=== PATIENT | female | born 1990 | race Caucasian/White ===

== ENCOUNTER 2020-09-05 12:21 | Emergency (ER) | payer SELFPAY ==
--- OUTSIDE RECORDS SUMMARY | 2020-09-05 12:23 | XMS REPORT | Continuity of Care Document ---
:1990 Author Organization [facility] t Address [address] [place] [address] Care Team Providers Name Role Phone Unavailable Unavailable Unavailable Payers Payer Name Policy Type Policy Number Effective Date Expiration Date S ource Problems This patient has no known problems. Allergies, Adverse Reactions, Alerts Allergy Allergy Status Severity Reaction(s) Onset Inactive Treating Comm ents Source Name Type Date Date Clinician No Known DA Active U 2018-05 [facility] d 00 [facility] Medications This patient has no known medications. Procedures This patient has no known procedures. Results Test Description Test Time Test Comments Results Result Comments Source COMPREHENSIVE METABOLIC PANEL 2019-04-27 11:51:00 Test Item Value Reference Range Interpretation Comme nts SODIUM (test code = NA) 140 mmol/l 134.0-147.0 N POTASSIUM (test code = K) 3.6 mmol/L 3.6-5.2 N CHLORIDE (test code = CL) 104 mmol/l 98.0-107.0 N CARBON DIOXIDE (test code = CO2) 29.6 mmol/l 21.0-33.0 N ANION GAP (test code = GAP) 10.0 0-20 N GLUCOSE (test code = GLU) 91 mg/dl 70.0-110.0 N BLOOD UREA NITROGEN (test code = BUN) 13 mg/dl 7.0-18.0 N CREATININE (test code = CREAT) 0.51 mg/dL 0.60-1.30 L GFR NON BLACK (test code = GFRNONBLACK) 151 mL/min 110-120 H GFR BLACK (test code = GFRBLACK) 183 mL/min 133-145 H TOTAL PROTEIN (test code = PROT) 6.7 gm/dL 6.4-8.2 N ALBUMIN (test code = ALB) 3.8 gm/dl 3.2-4.7 N CALCIUM (test code = CA) 8.3 mg/dl 8.0-10.5 N BILIRUBIN TOTAL (test code = BILT) 0.3 mg/dl 0.0-1.0 N SGOT/AST (test code = AST) 19 Units/L 15.0-37.0 N SGPT/ALT (test code = ALT) 17 Units/L 12.0-78.0 N ALKALINE PHOSPHATASE TOTAL (test code = ALKP) 50 Units/L 50.0-136 .0 N COMPREHENSIVE METABOLIC [id number] 11:38:00 Test Item Value Reference Range Interpretation Comments SODIUM (test code = NA) 140 mmol/l 134.0-147.0 N POTASSIUM (test code = K) 3.6 mmol/L 3.6-5.2 N CHLORIDE (test code = CL) 104 mmol/l 98.0-107.0 N CARBON DIOXIDE (test code = CO2) 29.6 mmol/l 21.0-33.0 N ANION GAP (test code = GAP) 10.0 0-20 N GLUCOSE (test code = GLU) mg/dl 70.0-110.0 BLOOD UREA NITROGEN (test code = mg/dl 7.0-18.0 BUN) CREATININE (test code = CREAT) mg/dL 0.60-1.30 GFR NON BLACK (test code = mL/min 110-120 GFRNONBLACK) GFR BLACK (test code = GFRBLACK) mL/min 133-145 TOTAL PROTEIN (test code = PROT) gm/dL 6.4-8.2 ALBUMIN (test code = ALB) gm/dl 3.2-4.7 CALCIUM (test code = CA) mg/dl 8.0-10.5 BILIRUBIN TOTAL (test code = mg/dl 0.0-1.0 BILT) SGOT/AST (test code = AST) Units/L 15.0-37.0 SGPT/ALT (test code = ALT) Units/L 12.0-78.0 ALKALINE PHOSPHATASE TOTAL (test Units/L 50.0-136.0 code = ALKP) URINALYSIS [id number] 11:18:00 Test Item Value Reference Range Interpretation Comments UA COLOR (test code = YELLOW COLU) UA APPEARANCE (test code CLEAR = APPU) UA GLUCOSE DIPSTICK (test NORMAL mg/dl NORMAL code = DGLUU) UA BILIRUBIN DIPSTICK NEGATIVE mg/dL NEGATIVE (test code = BILU) UA KETONE DIPSTICK (test NEGATIVE mg/dl NEGATIVE code = KETU) UA SPECIFIC GRAVITY (test 1.010 1.000-1.030 code = SGU) UA BLOOD DIPSTICK (test NEGATIVE Jesse/micL NEGATIVE code = VELASQUEZ) UA PH DIPSTICK (test code 7.0 5.0-9.0 = BRENDA) UA PROTEIN DIPSTICK (test NEGATIVE mg/dl NEGATIVE code = PROU) UA UROBILINIOGEN DIPSTICK NORMAL mg/dl NORMAL (test code = URO) UA NITRITE DIPSTICK (test NEGATIVE NEGATIVE code = JASPER) UA LEUKOCYTE ESTERASE 100 Dagoberto/micL NEGATIVE A DIPSTICK (test code = Dagoberto/micL LEUU) UA WBC (test code = WBCU) 4-9 WBC/HPF NONE A UA RBC (test code = RBCU) 0-2 RBC/HPF 0-3 UA EPITHELIAL CELLS (test 1-3 EPI/HPF 0-3 code = EPIU) UA BACTERIA (test code = FEW NONE BACU) UR HCG [id number] 11:18:00 Test Item Value Reference Range Interpretation Comments UR HCG QUAL (test code = HCGQLU) NEGATIVE NEGATIVE URINALYSIS [id number] 11:04:00 Test Item Value Reference Range Interpretation Comments UA COLOR (test code = COLU) UA APPEARANCE (test code = APPU) UA GLUCOSE DIPSTICK (test NORMAL mg/dl NORMAL code = DGLUU) UA BILIRUBIN DIPSTICK NEGATIVE mg/dL NEGATIVE (test code = BILU) UA KETONE DIPSTICK (test NEGATIVE mg/dl NEGATIVE code = KETU) UA SPECIFIC GRAVITY (test 1.010 1.000-1.030 code = SGU) UA BLOOD DIPSTICK (test NEGATIVE Jesse/micL NEGATIVE code = VELASQUEZ) UA PH DIPSTICK (test code 7.0 5.0-9.0 = BRENDA) UA PROTEIN DIPSTICK (test NEGATIVE mg/dl NEGATIVE code = PROU) UA UROBILINIOGEN DIPSTICK NORMAL mg/dl NORMAL (test code = URO) UA NITRITE DIPSTICK (test NEGATIVE NEGATIVE code = JASPER) UA LEUKOCYTE ESTERASE 100 Dagoberto/micL NEGATIVE A DIPSTICK (test code = Dagoberto/micL LEUU) UA WBC (test code = WBCU) WBC/HPF NONE UA RBC (test code = RBCU) RBC/HPF 0-3 UA EPITHELIAL CELLS (test EPI/HPF 0-3 code = EPIU) UA BACTERIA (test code = NONE BACU) UR HCG [id number] 11:04:00 Test Item Value Reference Range Interpretation Comments UR HCG QUAL (test code = HCGQLU) NEGATIVE NEGATIVE URINALYSIS [id number] 11:02:00 Test Item Value Reference Range Interpretation Comments UA COLOR (test code = COLU) UA APPEARANCE (test code = APPU) UA GLUCOSE DIPSTICK (test NORMAL mg/dl NORMAL code = DGLUU) UA BILIRUBIN DIPSTICK NEGATIVE mg/dL NEGATIVE (test code = BILU) UA KETONE DIPSTICK (test NEGATIVE mg/dl NEGATIVE code = KETU) UA SPECIFIC GRAVITY (test 1.010 1.000-1.030 code = SGU) UA BLOOD DIPSTICK (test NEGATIVE Jesse/micL NEGATIVE code = VELASQUEZ) UA PH DIPSTICK (test code 7.0 5.0-9.0 = BRENDA) UA PROTEIN DIPSTICK (test NEGATIVE mg/dl NEGATIVE code = PROU) UA UROBILINIOGEN DIPSTICK NORMAL mg/dl NORMAL (test code = URO) UA NITRITE DIPSTICK (test NEGATIVE NEGATIVE code = JASPER) UA LEUKOCYTE ESTERASE 100 Dagoberto/micL NEGATIVE A DIPSTICK (test code = Dagoberto/micL LEUU) UA WBC (test code = WBCU) WBC/HPF NONE UA RBC (test code = RBCU) RBC/HPF 0-3 UA EPITHELIAL CELLS (test EPI/HPF 0-3 code = EPIU) UA BACTERIA (test code = NONE BACU) UR HCG [id number] 11:02:00 Test Item Value Reference Range Interpretation Comments UR HCG QUAL (test code = HCGQLU) NEGATIVE CBC W/AUTO [id number] 11:01:00 Test Item Value Reference Range Interpretation Comments WHITE BLOOD CELL (test code = 6.6 K/mm3 4.5-11.0 N WBC) RED BLOOD CELL (test code = 3.68 M/mm3 3.80-5.20 L RBC) HEMOGLOBIN (test code = HGB) 10.7 gm/dL 12.0-16.0 L HEMATOCRIT (test code = HCT) 33.4 % 36.0-48.0 L MEAN CELL VOLUME (test code = 90.8 UM3 82.0-99.0 N MCV) MEAN CELL HGB (test code = MCH) 29.1 UUG 25.5-32.5 N MEAN CELL HGB CONCETRATION 32.0 gm/dL 29.0-35.5 N (test code = MCHC) RED CELL DISTRIBUTION WIDTH 13.1 % 11.5-15.0 N (test code = RDW) RED CELL DISTRIBUTION WIDTH SD 43.4 fL 34.8-50.2 N (test code = RDW-SD) PLATELET COUNT (test code = 188 K/mm3 150-400 N PLT) MEAN PLATELET VOLUME (test code 10.6 fl 7.4-10.4 H = MPV) NEUTROPHIL % (test code = NT%) 71.8 % 49.0-76.0 N IMMATURE GRANULOCYTE % (test 0.2 % 0.0-0.4 N code = IG%) LYMPHOCYTE % (test code = LY%) 18.3 % 23.0-38.0 L MONOCYTE % (test code = MO%) 8.5 % 1.0-10.0 N EOSINOPHIL % (test code = EO%) 0.9 % 1.0-5.0 L BASOPHIL % (test code = BA%) 0.3 % 0.0-1.0 N NEUTROPHIL # (test code = NT#) 4.7 K/mm3 2.4-6.3 N IMMATURE GRANULOCYTE # (test 0.01 x10 3/uL 0.00-0.07 N code = IG#) LYMPHOCYTE # (test code = LY#) 1.2 K/mm3 1.2-4.0 N MONOCYTE # (test code = MO#) 0.6 K/mm3 0.0-0.6 N EOSINOPHIL # (test code = EO#) 0.1 K/MM3 0.0-0.7 N BASOPHIL # (test code = BA#) 0.0 K/mm3 0.0-0.2 N
--- NOTE | 2020-09-05 13:27 | RAD REPORT ---
EXAM DESCRIPTION: Luis Alberto Single View09/05/2020 1:19 pm CLINICAL HISTORY: Cough COMPARISON: none FINDINGS: The lungs appear clear of acute infiltrate. The heart is normal size IMPRESSION: No acute abnormalities displayed
--- NOTE | 2020-09-05 13:32 | RAD REPORT ---
EXAM DESCRIPTION: CT - Head Brain Wo Cont - 09/05/2020 1:25 pm CLINICAL HISTORY: Seizure COMPARISON: None. TECHNIQUE: Computed axial tomography of the head was obtained. IV contrast was not requested. All CT scans are performed using dose optimization technique as appropriate and may include automated exposure control or mA/KV adjustment according to patient size. FINDINGS: An intracranial bleed is not seen . The ventricles are normal in caliber. No extra-axial fluid collection is noted. Fluid within the sinuses/ mastoids is not seen. IMPRESSION: No acute intracranial abnormality is seen. If patient's symptoms persist MRI of the bra in would be recommended.
[2020-09-05 14:08] LABS: Absolute Lymphocytes (CBC) 1.5 K/uL (0.7-4.9); Basophils % 0.7 % (0-1.3); Hematocrit 38.1 % (36.0-45.0); Lymphocytes % 19.7 % (15.3-44.8); MPV 8.6 fL (7.6-11.3); RBC Red Blood Cell Count 4.53 M/uL (3.86-4.86)
[2020-09-05 14:24] LABS: Protime INR 0.9
[2020-09-05 14:31] LABS: AST/SGOT 165 U/L (15-37); Albumin 3.6 g/dL (3.4-5.0); Alkaline Phosphatase 158 U/L (45-117); BUN Blood Urea Nitrogen 16 mg/dL (7-18); Bicarbonate 27 mmol/L (21-32); Bilirubin Direct 0.2 mg/dL (0-0.2); Bilirubin Total 0.3 mg/dL (0.2-1.0); Glucose Level 89 mg/dL (74-106); Magnesium 2.3 mg/dL (1.8-2.4); Protein, Total 7.6 g/dL (6.4-8.2); Sodium Level 140 mmol/L (136-145); Troponin (Emerg Dept Use Only) < 0.02 ng/mL (0.0-0.045)
[2020-09-05] MEDS ORDERED: NA CHLORIDE 0.9% 1,000 ML ONE (14:36)
[2020-09-05 14:38] LABS: ALT/SGPT 670 U/L (12-78)
[2020-09-05 14:41] LABS: Urine Blood Negative (Negative); Urine Glucose Negative (Negative); Urine Protein Negative (Negative); Urine Specific Gravity >=1.030 (1.005-1.030); Urine pH 5.5 (5.0-7.0)
[2020-09-05 14:56] LABS: Urine Specific Gravity/Preg >1.030 (1.005-1.030)
[2020-09-05 15:15] LABS: Barbiturates NEGATIVE (NEGATIVE); Benzodiazepines POSITIVE (NEGATIVE); Cocaine NEGATIVE (NEGATIVE); METHAMPHETAM NEGATIVE (NEGATIVE); Methadone NEGATIVE (NEGATIVE); Opiates NEGATIVE (NEGATIVE); Phencyclidine NEGATIVE (NEGATIVE); THC Cannibis NEGATIVE (NEGATIVE)
--- NOTE | 2020-09-05 15:31 | RAD REPORT ---
EXAM DESCRIPTION: US - Abdomen Exam Limited - 09/05/2020 3:26 pm CLINICAL HISTORY: Abdominal pain. COMPARISON: None. FINDINGS: The gallbladder is contracted. The gallbladder wall measures 5 millimeters. A gallstone is not seen The biliary tree is normal caliber. IMPRESSION: Contracted gallbladder. This likely results in gallbladder wall appears thickened. No evidence cholecystitis
--- NOTE | 2020-09-05 15:44 | ER ---
Nurse's Notes [facility] Name: Miesha Banks Age: 30 yrs Sex: Female : 1990 Arrival Date: 09/05/2020 Time: 12:32 Bed 12 Private MD: Diagnosis: Syncope and collapse;Epileptic seizures related to external causes;Abnormal results of liver function studies Presentation: 09/05 12:32 Chief complaint: EMS states: Pt is a resident of [facility] on her . She was ca1 in class, sitting when she started feeling dizzy. When she woke up, people where trying to wake her up. Bystanders said she had seizure-like activity. No HX of seizures. BP 108/66, HR 98, SP02 99%. Coronavirus screen: Client denies travel out of the [place] in the last 14 days. At this time, the client does not indicate any symptoms associated with coronavirus-19. Ebola Screen: Patient negative for fever greater than or equal to 101.5 degrees Fahrenheit, and additional compatible Ebola Virus Disease symptoms Patient denies exposure to infectious person. Patient denies travel to an Ebola-affected area in the 21 days before illness onset. No symptoms or risks identified at this time. Initial Sepsis Screen: Does the patient meet any 2 criteria? No. Patient's initial sepsis screen is negative. Does the patient have a suspected source of infection? No. Patient's initial sepsis screen is negative. Risk Assessment: Do you want to hurt yourself or someone else? Patient reports no desire to harm self or others. Onset of symptoms was September 05, 2020. 12:32 Method Of Arrival: EMS: [facility] ca1 12:32 Acuity: LESLEY 3 ca1 Triage Assessment: 12:35 General: Appears in no apparent distress. comfortable, Behavior is calm, cooperative, ca1 appropriate for age. Pain: Denies pain. EENT: No signs and/or symptoms were reported regarding the EENT system. Neuro: Level of Consciousness is awake, alert, obeys commands, Oriented to person, place, time, situation. Cardiovascular: Heart tones S1 S2 present Capillary refill < 3 seconds Patient's skin is warm and dry. Respiratory: Airway is patent Respiratory effort is even, unlabored, Respiratory pattern is regular, symmetrical, Breath sounds are clear bilaterally. GI: Abdomen is flat, non-distended. GI: Bowel sounds present X 4 quads. Abd is soft and non tender X 4 quads. : No signs and/or symptoms were reported regarding the genitourinary system. Derm: Skin is intact, is healthy with good turgor, Skin is pink, warm \T\ dry. Musculoskeletal: Circulation, motion, and sensation intact. Capillary refill < 3 seconds. 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 Flu vaccine is not up to date. - Social history:: Smoking status: Patient reports the use of cigarette tobacco products, smokes one-half pack cigarettes per day. Screenin:57 Abuse screen: Denies threats or abuse. Denies injuries from another. Nutritional ca1 screening: No deficits noted. Tuberculosis screening: No symptoms or risk factors identified. Fall Risk IV access (20 points). Assessment: 12:57 Reassessment: see triage notes. ca1 13:55 Reassessment: Patient appears in no apparent distress at this time. Patient and/or ca1 family updated on plan of care and expected duration. Pain level reassessed. Patient is alert, oriented x 3, equal unlabored respirations, skin warm/dry/pink. 14:55 Reassessment: Patient appears in no apparent distress at this time. Patient and/or ca1 family updated on plan of care and expected duration. Pain level reassessed. Patient is alert, oriented x 3, equal unlabored respirations, skin warm/dry/pink. 15:55 Reassessment: Patient appears in no apparent distress at this time. Patient and/or ca1 family updated on plan of care and expected duration. Pain level reassessed. Patient is alert, oriented x 3, equal unlabored respirations, skin warm/dry/pink. Patient states feeling better. Vital Signs: 12:32 BP 96 / 57; Pulse 85; Resp 17 S; Temp 97.4(TE); Pulse Ox 98% on R/A; Weight 63.5 kg ca1 (R); Height 5 ft. 4 in. (162.56 cm) (R); Pain 0/10; 14:43 BP 118 / 48; Pulse 92; Pulse Ox 100% on R/A; sr5 15:55 BP 110 / 76; Pulse 86; Resp 16 S; Pulse Ox 100% on R/A; ca1 12:32 Body Mass Index 24.03 (63.50 kg, 162.56 cm) ca1 14:43 recently returned from ambulation to restroom, UA collected, reports feeling better, sr5 less shaky NIH Stroke Scale Scores: 14:25 NIHSS Score: 0 vero ED Course: 12:32 Patient arrived in ED. ca1 12:34 Laz Grimes MD is Attending Physician. vero 12:36 Triage completed. ca1 12:39 Arm band placed on right wrist. ca1 12:57 Patient has correct armband on for positive identification. Bed in low position. Call ca1 light in reach. Side rails up X 1. Side rails up X2. Seizure precautions initiated. Pulse ox on. NIBP on. Warm blanket given. 12:59 Sara Raza, RN is Primary Nurse. ca1 13:19 XRAY Chest (1 view) In Process Unspecified. EDMS 13:24 CT Head Brain wo Cont In Process Unspecified. EDMS 13:59 Initial lab(s) drawn, by me, sent to lab. EKG done, by ED staff, reviewed by Laz Grimes MD. Inserted saline lock: 20 gauge in right forearm, using aseptic technique. Blood collected. 15:26 US Abdomen Limited In Process Unspecified. EDMS 15:42 Ramón Soares MD is Referral Physician. vero 15:42 Trell Morgan MD is Referral Physician. vero 16:14 No provider procedures requiring assistance completed. IV discontinued, intact, ca1 bleeding controlled, No redness/swelling at site. Pressure dressing applied. Administered Medications: 14:20 Drug: NS 0.9% 1000 ml Route: IV; Rate: 1 bolus; Site: right forearm; ca1 15:30 Follow up: Response: No adverse reaction; IV Status: Completed infusion; IV Intake: ca1 1000ml Intake: 15:30 IV: 1000ml; Total: 1000ml. ca1 Outcome: 15:43 Discharge ordered by . vero 16:14 Discharged to home ambulatory, with family. ca1 16:14 Condition: stable 16:14 Discharge instructions given to patient, Instructed on discharge instructions, follow up and referral plans. Demonstrated understanding of instructions, follow-up care. 16:16 Patient left the ED. ca1 NIH Stroke Scale - NIH Stroke Score Date: 09/05/2020 Time: 14:25 Total Score = 0 1a. Level of Consciousness (LOC) - 0(Alert) 1b. Level of Consciousness (LOC) (Year \T\ Age) - 0(Both) 1c. LOC Commands (Open \T\ Closes Eyes/Liquor Maker) - 0(Both) 2. Best Gaze (Lateral Gaze Paresis) - 0(Normal) 3. Visual Field Loss - 0(No visual loss) 4. Facial Palsy - 0(Normal) 5a. Left Arm: Motor (10-second hold) - 0(No drift) 5b. Right Arm: Motor (10-second hold) - 0(No drift) 6a. Left Leg: Motor (5-second hold - always test supine) - 0(No drift) 6b. Right Leg: Motor (5-second hold - always test supine) - 0(No drift) 7. Limb Ataxia (finger/nose \T\ heel/ford - test with eyes open) - 0(Absent) 8. Sensory Loss (pinprick arms/legs/face) - 0(Normal) 9. Best Language: Aphasia (description/naming/reading) - 0(No aphasia) 10. Dysarthria (speech clarity - read or repeat words) - 0(Normal) 11. Extinction and Inattention (visual/tactile/auditory/spatial/personal) - 0(No abnormality) Initials: vero Signatures: Dispatcher [employer] Laz Jones MD MD cha Resecker, Fabian, RN RN sr5 Sara Raza RN RN ca1
--- NOTE | 2020-09-05 15:44 | EDPHYS ---
Physician Documentation [facility] Name: Miesha Banks Age: 30 yrs Sex: Female : 1990 Arrival Date: 09/05/2020 Time: 12:32 Bed 12 Private MD: RAHAT Physician Laz Grimes HPI: 09/05 14:24 This 30 yrs old Female presents to ER via EMS with complaints of Near Syncope.vero 14:24 The patient has experienced syncope, collapsed. Onset: The symptoms/episode vero began/occurred just prior to arrival. Duration: This was a single episode, that lasted 30 second(s). Context: the episode(s) was witnessed, by a bystander. Associated injury: The patient did not suffer any apparent associated injury. Associated signs and symptoms: The patient has no apparent associated signs or symptoms. Current symptoms: Currently, the patient is not experiencing any symptoms, the patient feels back to baseline, no decreased level of consciousness, no confusion, no dysphasia, no headache, no paralysis, no visual changes. The patient has not experienced similar symptoms in the past. 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 Flu vaccine is not up to date. - Social history:: Smoking status: Patient reports the use of cigarette tobacco products, smokes one-half pack cigarettes per day. ROS: 14:25 Constitutional: Negative for fever, chills, and weight loss, Eyes: Negative for injury, vero pain, redness, and discharge, ENT: Negative for injury, pain, and discharge, Neck: Negative for injury, pain, and swelling, Cardiovascular: Negative for chest pain, palpitations, and edema, Respiratory: Negative for shortness of breath, cough, wheezing, and pleuritic chest pain, Abdomen/GI: Negative for abdominal pain, nausea, vomiting, diarrhea, and constipation, Back: Negative for injury and pain, : Negative for injury, bleeding, discharge, and swelling, MS/Extremity: Negative for injury and deformity, Skin: Negative for injury, rash, and discoloration, Psych: Negative for depression, anxiety, suicide ideation, homicidal ideation, and hallucinations, Allergy/Immunology: Negative for hives, rash, and allergies, Endocrine: Negative for neck swelling, polydipsia, polyuria, polyphagia, and marked weight changes, Hematologic/Lymphatic: Negative for swollen nodes, abnormal bleeding, and unusual bruising. 14:25 Neuro: Positive for seizure activity, weakness. Exam: 14:25 Constitutional: This is a well developed, well nourished patient who is awake, alert, vero and in no acute distress. Head/Face: Normocephalic, atraumatic. Eyes: Pupils equal round and reactive to light, extra-ocular motions intact. Lids and lashes normal. Conjunctiva and sclera are non-icteric and not injected. Cornea within normal limits. Periorbital areas with no swelling, redness, or edema. ENT: Nares patent. No nasal discharge, no septal abnormalities noted. Tympanic membranes are normal and external auditory canals are clear. Oropharynx with no redness, swelling, or masses, exudates, or evidence of obstruction, uvula midline. Mucous membranes moist. Neck: Trachea midline, no thyromegaly or masses palpated, and no cervical lymphadenopathy. Supple, full range of motion without nuchal rigidity, or vertebral point tenderness. No Meningismus. Chest/axilla: Normal chest wall appearance and motion. Nontender with no deformity. No lesions are appreciated. Cardiovascular: Regular rate and rhythm with a normal S1 and S2. No gallops, murmurs, or rubs. Normal PMI, no JVD. No pulse deficits. Respiratory: Lungs have equal breath sounds bilaterally, clear to auscultation and percussion. No rales, rhonchi or wheezes noted. No increased work of breathing, no retractions or nasal flaring. Abdomen/GI: Soft, non-tender, with normal bowel sounds. No distension or tympany. No guarding or rebound. No evidence of tenderness throughout. Back: No spinal tenderness. No costovertebral tenderness. Full range of motion. Skin: Warm, dry with normal turgor. Normal color with no rashes, no lesions, and no evidence of cellulitis. MS/ Extremity: Pulses equal, no cyanosis. Neurovascular intact. Full, normal range of motion. Neuro: Awake and alert, GCS 15, oriented to person, place, time, and situation. Cranial nerves II-XII grossly intact. Motor strength 5/5 in all extremities. Sensory grossly intact. Cerebellar exam normal. Normal gait. Psych: Awake, alert, with orientation to person, place and time. Behavior, mood, and affect are within normal limits. 14:25 Neuro: Orientation: is normal, appropriate for stated age, no acute changes, Mentation: is normal, appropriate for stated age, no acute changes, Memory: is normal, appropriate for stated age, no acute changes, Cranial nerves: grossly normal, is grossly normal based on the patient's age, no acute changes, Cerebellar function: is grossly normal, is grossly normal based on the patient's age, no acute changes, Motor: is normal, is grossly normal based on the patient's age, no acute changes, moves all fours, strength is normal, the no evidence of posturing, Sensation: no obvious gross deficits, appropriate no acute changes, Gait: is steady, appropriate for age, Deep tendon reflexes are 2+ (normal) in the bilateral brachioradialis, bicep, tricep and patellar and Achilles tendons, Babinski testing is normal, seizure activity, is not displayed by the patient. 14:29 ECG was reviewed by the Attending Physician. vero Vital Signs: 12:32 BP 96 / 57; Pulse 85; Resp 17 S; Temp 97.4(TE); Pulse Ox 98% on R/A; Weight 63.5 kg ca1 (R); Height 5 ft. 4 in. (162.56 cm) (R); Pain 0/10; 14:43 BP 118 / 48; Pulse 92; Pulse Ox 100% on R/A; sr5 15:55 BP 110 / 76; Pulse 86; Resp 16 S; Pulse Ox 100% on R/A; ca1 12:32 Body Mass Index 24.03 (63.50 kg, 162.56 cm) ca1 14:43 recently returned from ambulation to restroom, UA collected, reports feeling better, sr5 less shaky NIH Stroke Scale Scores: 14:25 NIHSS Score: 0 vero MDM: 12:34 Patient medically screened. vero 12:45 Patient medically screened. vero 14:28 Differential Diagnosis: cardiac arrhythmia, drug effect, emotional response, idiopathic vero syncope, , seizure, vasovagal episode, cerebral vascular accident, drug overdose, cardiac arrhythmia, seizure, TIA. Data reviewed: vital signs, nurses notes, lab test result(s), EKG, radiologic studies, CT scan, plain films. Data interpreted: interactive digital media specialist: rate is 85 beats/min, rhythm is regular, Pulse oximetry: on is 98 %. Test interpretation: by ED physician or midlevel provider: ECG, plain radiologic studies. Counseling: I had a detailed discussion with the patient and/or guardian regarding: the historical points, exam findings, and any diagnostic results supporting the discharge/admit diagnosis, the presence of at least one elevated blood pressure reading (>120/80) during this emergency department visit, lab results, radiology results. 09/05 13:04 Order name: Basic Metabolic Panel; Complete Time: 14:42 [facility] 09/05 13:04 Order name: CBC with Diff; Complete Time: 14:24 [facility] 09/05 13:04 Order name: LFT's; Complete Time: 14:42 [facility] 09/05 13:04 Order name: Magnesium; Complete Time: 14:42 [facility] 09/05 13:04 Order name: Troponin (emerg Dept Use Only); Complete Time: 14:42 [facility] 09/05 13:04 Order name: Acetaminophen; Complete Time: 14:42 [facility] 09/05 13:04 Order name: ETOH Level; Complete Time: 14:24 [facility] 09/05 13:04 Order name: PT-INR; Complete Time: 14:42 [facility] 09/05 13:04 Order name: Ptt, Activated; Complete Time: 14:42 [facility] 09/05 13:04 Order name: Salicylate; Complete Time: 15:41 [facility] 09/05 13:04 Order name: Urine Drug Screen; Complete Time: 15:41 [facility] 09/05 14:41 Order name: Urine Dipstick-Ancillary; Complete Time: 14:42 [facility] 09/05 14:43 Order name: Urine --Ancillary (enter results) bd 09/05 13:04 Order name: XRAY Chest (1 view); Complete Time: 14:24 [facility] 09/05 13:04 Order name: EKG; Complete Time: 13:05 [facility] 09/05 13:04 Order name: Cardiac monitoring; Complete Time: 13:54 09/05 13:04 Order name: EKG - Nurse/Tech; Complete Time: 13:55 09/05 13:04 Order name: IV Saline Lock; Complete Time: 13:58 09/05 13:04 Order name: Labs collected and sent; Complete Time: 13:58 09/05 13:04 Order name: O2 Per Protocol; Complete Time: 13:58 09/05 13:04 Order name: O2 Sat Monitoring; Complete Time: 13:59 09/05 13:04 Order name: Urine Dipstick-Ancillary (obtain specimen); Complete Time: 13:54 09/05 13:04 Order name: CT Head Brain wo Cont; Complete Time: 14:24 09/05 13:04 Order name: Seizure Precautions; Complete Time: 13:54 09/05 13:06 Order name: Urine Test (obtain specimen); Complete Time: 14:43 09/05 14:43 Order name: US Abdomen Limited; Complete Time: 15:41 09/05 14:44 Order name: Urine --Ancillary; Complete Time: 15:41 [facility] EC:29 Rate is 88 beats/min. Rhythm is regular. QRS [place] is Normal. MI interval is normal. QRS vero interval is normal. QT interval is normal. No Q waves. T waves are Normal. No ST changes noted. Clinical impression: Normal ECG and No evidence of ischemia. Interpreted by me. Reviewed by me. Administered Medications: 14:20 Drug: NS 0.9% 1000 ml Route: IV; Rate: 1 bolus; Site: right forearm; ca1 15:30 Follow up: Response: No adverse reaction; IV Status: Completed infusion; IV Intake: ca1 1000ml Disposition: 09/05/20 15:43 Discharged to Home. Impression: Syncope and collapse, Epileptic seizures related to external causes, Abnormal results of liver function studies. - Condition is Stable. - Discharge Instructions: Near-Syncope, Nonepileptic Seizures, Seizure, Adult, Syncope, Weakness, Near-Syncope, [id number], Seizure, Adult, [id number]-[id number], Syncope, Kztf-kw-Nady, Weakness, Tyol-[id number]-Ljrg, Vasovagal Syncope, Adult. - Medication Reconciliation Form, Thank You Letter, Antibiotic Education, Prescription Opioid Use form. - Follow up: Private Physician; When: 2 - 3 days; Reason: Recheck today's complaints, Continuance of care, Re-evaluation by your physician. Follow up: Ramón Soares; When: 2 - 3 days; Reason: Recheck today's complaints, Re-evaluation by your physician. Follow up: Trell Morgan MD; When: 2 - 3 days; Reason: Recheck today's complaints, Re-evaluation by your physician. - Problem is new. - Symptoms have improved. NIH Stroke Scale - NIH Stroke Score Date: 09/05/2020 Time: 14:25 Total Score = 0 1a. Level of Consciousness (LOC) - 0(Alert) 1b. Level of Consciousness (LOC) (Year \T\ Age) - 0(Both) 1c. LOC Commands (Open \T\ Closes Eyes/Rat Trapper) - 0(Both) 2. Best Gaze (Lateral Gaze Paresis) - 0(Normal) 3. Visual Field Loss - 0(No visual loss) 4. Facial Palsy - 0(Normal) 5a. Left Arm: Motor (10-second hold) - 0(No drift) 5b. Right Arm: Motor (10-second hold) - 0(No drift) 6a. Left Leg: Motor (5-second hold - always test supine) - 0(No drift) 6b. Right Leg: Motor (5-second hold - always test supine) - 0(No drift) 7. Limb Ataxia (finger/nose \T\ heel/ford - test with eyes open) - 0(Absent) 8. Sensory Loss (pinprick arms/legs/face) - 0(Normal) 9. Best Language: Aphasia (description/naming/reading) - 0(No aphasia) 10. Dysarthria (speech clarity - read or repeat words) - 0(Normal) 11. Extinction and Inattention (visual/tactile/auditory/spatial/personal) - 0(No abnormality) Initials: [facility] Signatures: Dispatcher [employer] Laz Jones MD MD cha Acob, Cheryl, RN RN ca1 Corrections: (The following items were deleted from the chart) 13:54 13:04 Suicide Screening ([place]) ordered. [facility] ca1 16:16 15:43 09/05/2020 15:43 Discharged to Home. Impression: Syncope and collapse; ca1 Epileptic seizures related to external causes; Abnormal results of liver function studies. Condition is Stable. Discharge Instructions: Near-Syncope, Nonepileptic Seizures, Seizure, Adult, Syncope, Weakness, Near-Syncope, [id number], Seizure, Adult, [id number]-[id number], Syncope, Cdll-we-Lalw, Weakness, Warj-hn-Ieod, Vasovagal Syncope, Adult. Forms are Medication Reconciliation Form, Thank You Letter, Antibiotic Education, Prescription Opioid Use. Follow up: Private Physician; When: 2 - 3 days; Reason: Recheck today's complaints, Continuance of care, Re-evaluation by your physician. Follow up: Ramón Soares; When: 2 - 3 days; Reason: Recheck today's complaints, Re-evaluation by your physician. Follow up: Trell Morgan; When: 2 - 3 days; Reason: Recheck today's complaints, Re-evaluation by your physician. Problem is new. Symptoms have improved. vero
[2020-09-05 16:34] VITALS: TEMP 97.4
[2020-09-05 16:39] VITALS: O2SAT 100
[2020-09-05 16:40] VITALS: BP 110/76
--- NOTE | 2020-09-06 11:15 | EKG ---
Test Date: 2020-09-05 Test Time: 13:45:25 Account General Manager: ARABELLA MEASUREMENT RESULTS: Intervals: Rate: 88 DE: 132 QRSD: 82 QT: 394 QTc: 476 [place]: P: 72 DE: 132 QRS: 65 T: 50 INTERPRETIVE STATEMENTS: Normal sinus rhythm Normal ECG No previous ECG available for comparison Electronically Signed On 09-06-20 11:13:33 CDT by Miquel Fall
== END 2020-09-05 16:16 | disposition home or self-care (01) ==
LOC: ER 12:21
DX: G40.509 Epileptic seizures related to external causes, not intractable, without status epilepticus (principal); R94.5 Abnormal results of liver function studies; F32.9 Major depressive disorder, single episode, unspecified; F17.210 Nicotine dependence, cigarettes, uncomplicated
CPT/HCPCS: 36415; 70450; 71045; 76705; 80048; 80076; 80307; 80320; 80329; 81003; 81025; 83735; 84484; 85025; 85610; 85730; 93005; 96360; 99284; J7030